=== PATIENT | female | born 1990 | race Caucasian/White ===

== ENCOUNTER 2024-01-12 06:38 | Outpatient (CLI) | payer BC, MEDICAID ==
[~2024-01-12 06:38] MED LIST: GADOTERATE MEGLUMINE 7.5 MMOL/15 ML VIAL IV ONE; LIDOcaine 1% 30ml preserv. free vial ONE; LIDOcaine 1%/PF 5ML 10 MG/ML VIAL ONE; iohexol 300 MG/1 ML 50ml polymer ONE
== END 2024-01-12 23:59 | disposition home or self-care (01) ==
LOC: RAD 06:38
PROVIDERS: ATTEND Family Medicine Sports Medicine
DX: M17.11 Unilateral primary osteoarthritis, right knee (principal); M76.51 Patellar tendinitis, right knee; M62.551 Muscle wasting and atrophy, not elsewhere classified, right thigh; M22.41 Chondromalacia patellae, right knee
CPT/HCPCS: 27369; 73722; 77002; A9575; J3490; Q9967; 73580